=== PATIENT | female | born 1960 | race Caucasian/White ===

== ENCOUNTER 2024-05-31 06:55 | Day surgery (SDC) | payer MEDICARE, OTHER ==
[2024-05-31] MEDS: Lactated Ringers 1,000 ML IV SCH (07:15)
== END 2024-05-31 08:50 | disposition home or self-care (01) ==
LOC: CC.SDS 06:55
PROVIDERS: ATTEND Family Medicine
DX: Z12.11 Encounter for screening for malignant neoplasm of colon (principal); K57.30 Diverticulosis of large intestine without perforation or abscess without bleeding; I10 Essential (primary) hypertension; E78.00 Pure hypercholesterolemia, unspecified; M81.0 Age-related osteoporosis without current pathological fracture; E03.9 Hypothyroidism, unspecified; Z79.899 Other long term (current) drug therapy
CPT/HCPCS: 00811; 88305; J7120